=== PATIENT | female | born 1970 | race Caucasian/White ===

== ENCOUNTER 2022-11-04 16:08 | Emergency (ER) | payer SELFPAY ==
[2022-11-04 16:17] VITALS: BP 135/87; PULSE 84; RESP 18; TEMP 98.2; BMI 34.7
[2022-11-04] MEDS ORDERED: ACETAMINOPHEN 1000 MG/100 ML BAG IVPB ONE (17:25)
[2022-11-04] MEDS ORDERED: ACETAMINOPHEN INJECTION 100 ML IVPB ONE (17:54)
[2022-11-04 18:12] LABS: BASO % 0.7 % (0-2.0); HEMOGLOBIN 13.1 GM/dL (10.7-15.3); LYMPH % 45.7 % (8-40); MCH 28.6 pg (25.7-33.7); MCHC 33.5 g/dl (32.0-36.0); MEAN CELL VOLUME 85.1 fl (80-96); MEAN PLT VOLUME 7.1 fl (7.5-11.1); MONO % 4.5 % (3.8-10.2); NEUT % 43.1 % (42.8-82.8); PLATELET COUNT 447 10^3/uL (134-434); RBC 4.58 M/mm3 (3.60-5.2); RDW 13.4 % (11.6-15.6); WHITE BLOOD COUNT 8.6 K/mm3 (4.0-10.0)
[2022-11-04 18:41] LABS: ALBUMIN 3.3 g/dl (3.4-5.0); BLOOD UREA NITROGEN 9.7 mg/dL (7-18)
[2022-11-04 18:44] LABS: CREATININE 0.7 mg/dL (0.55-1.3)
[2022-11-04 18:45] LABS: BILIRUBIN,TOTAL 0.2 mg/dL (0.2-1)
[2022-11-04 18:46] LABS: TOT PROT 7.5 g/dl (6.4-8.2)
[2022-11-04 19:05] LABS: INR 1.07 (0.83-1.09); PROTHROMBIN TIME (PATIENT) 12.4 SEC (9.7-13.0)
[2022-11-04 19:07] LABS: ACTIVATED PTT 30.8 SECONDS (25.2-36.5)
== END 2022-11-04 20:02 | disposition home or self-care (01) ==
LOC: JER 16:08
PROC: 3E033NZ Introduction of Analgesics, Hypnotics, Sedatives into Peripheral Vein, Percutaneous Approach (ICD-10-PCS; principal; 2022-11-04)
DX: R20.0 Anesthesia of skin (principal); R05.1 Acute cough; Z20.822 Contact with and (suspected) exposure to COVID-19
CPT/HCPCS: 0241U-QW; 36415; 71046-TC-FY; 80053; 84484; 85025; 85610; 85730; 93005; 93010; 99285-25